=== PATIENT | female | born 1980 | race Asian ===

== ENCOUNTER 2022-03-08 20:49 | Outpatient (CLI) | payer OTHER ==
[2022-03-08 23:53] LABS: Basophils % (Auto) 0.4 % (0.0-1.8); Eosinophils # (Auto) 0.1 K/mm3 (0.0-0.4); Eosinophils % (Auto) 1.2 % (0.0-4.3); Hematocrit 31.9 % (30.3-42.9); Hemoglobin 10.7 gm/dl (10.1-14.3); Lymphocytes # (Auto) 1.5 K/mm3 (1.2-5.4); Lymphocytes % (Auto) 18.7 % (13.4-35.0); Mean Corpuscular HGB Conc 34 % (30-34); Mean Corpuscular Volume 78 fl (79-97); Monocytes # (Auto) 0.4 K/mm3 (0.0-0.8); Monocytes % (Auto) 5.5 % (0.0-7.3); Platelet Count 236 K/mm3 (140-440)
[2022-03-08 23:55] LABS: Color,Urine Yellow (Yellow)
[2022-03-08 23:56] LABS: Bilirubin,Urine NEG (Negative); Blood,Urine MOD (Negative); Protein,Urine <15 mg/dL mg/dL (Negative); Urobilinogen,Urine < 2.0 mg/dL (<2.0)
[2022-03-08 23:57] LABS: Mucus,Urine FEW /HPF
[2022-03-09 00:06] LABS: Creatinine,Urine 135.7 mg/dL (0.1-20.0)
[2022-03-09 00:13] LABS: Alanine Aminotransferase 7 units/L (7-56); Albumin 3.5 g/dL (3.9-5); Blood Urea Nitrogen 8 mg/dL (7-17); Calcium 8.7 mg/dL (8.4-10.2); Hemolysis Index 1
[2022-03-09 00:18] LABS: BUN/Creatinine Ratio 20
[2022-03-09 01:02] VITALS: BP 132/83
== END 2022-03-09 01:00 | disposition home or self-care (01) ==
LOC: TRG 20:49 → APU 20:51 → TRG 03-09 01:00
PROVIDERS: ATTEND Obstetrics & Gynecology Gynecology
DX: O26.853 Spotting complicating pregnancy, third trimester (principal); Z3A.28 28 weeks gestation of pregnancy
CPT/HCPCS: 36415; 80053; 81001; 82570; 83615; 84156; 84550; 85025

== ENCOUNTER 2022-04-11 05:35 | Outpatient (CLI) | payer OTHER ==
[2022-04-11] MEDS ORDERED: LACTATED RINGERS 500 ML IV ONE (06:14)
[2022-04-11 06:58] LABS: Amphetamine Screen,Urine Negative; Benzodiazepines Screen,Urine Negative; Cannabinoid Screen,Urine Negative; Cocaine Screen,Urine Negative; Methadone Screen,Urine Negative; Opiate Screen,Urine Negative
[2022-04-11 06:59] LABS: Bacteria,Urine 1+ /HPF (Negative); Mucus,Urine FEW /HPF; RBC,Urine < 1.0 /HPF (0.0-6.0)
[2022-04-11 07:00] LABS: Bilirubin,Urine Negative (Negative); Color,Urine Yellow (Yellow)
[2022-04-11 07:01] LABS: Blood,Urine Negative (Negative); Protein,Urine <15 mg/dL mg/dL (Negative); Urobilinogen,Urine < 2.0 mg/dL (<2.0)
[2022-04-11 08:34] VITALS: BP 131/80
[2022-04-11] MEDS ORDERED: ACETAMINOPHEN 500 MG TAB PO NR (08:59)
--- NOTE | 2022-04-11 09:06 | Ultrasound Report ---
ULTRASOUND OBSTETRIC LIMITED ULTRASOUND BIOPHYSICAL PROFILE INDICATION / CLINICAL INFORMATION: well being. COMPARISON: None available. FINDINGS: BREATHING MOVEMENT = 2 GROSS BODY MOVEMENT = 2 TONE = 2 QUALITATIVE AMNIOTIC FLUID VOLUME = 2 TOTAL BIOPHYSICAL SCORE = 8/8 AMNIOTIC FLUID INDEX (cm) = 16.5 PRESENTATION: Breech. HEART RATE (beats per minute): 149 ADDITIONAL FINDINGS: Posterior placenta IMPRESSION: 1. Biophysical Score = 8/8 Signer Name: Anup Pierce MD Signed: 04/11/2022 9:02 AM Workstation Name: [id number]
== END 2022-04-11 09:21 | disposition home or self-care (01) ==
LOC: TRG 05:35 → APU 05:38 → TRG 09:21
PROVIDERS: ATTEND Obstetrics & Gynecology
DX: O47.03 False labor before 37 completed weeks of gestation, third trimester (principal); Z3A.32 32 weeks gestation of pregnancy
CPT/HCPCS: 59025; 76815; 76819; 80307; 81001